=== PATIENT | female | born 1970 | race Caucasian/White ===

== ENCOUNTER 2017-06-04 12:15 | Observation (INO) | payer BC ==
[2017-06-04 12:26] VITALS: BMI 28.7
--- NOTE | 2017-06-04 13:10 | ED PDOC ---
Arrival/HPI - General Chief Complaint: Upper Extremity Problem/Injury Time Seen by Provider: 06/04/17 12:28 Historian: Patient, Family - History of Present Illness Narrative History of Present Illness (Text): 06/04/17 13:07 A 46 year old female, whose past medical history includes migraines, hypertension, hyperlipidemia, and pre-diabetes, presents to the emergency department complaining of pressure-like mid-chest pain since yesterday. Patient reports today experiencing associated left arm pain. Notes also experiencing right-side headache, and tingling sensation which is typical to when patient experiences migraines. Not worse headache of her life. Patient denies any nausea , or any other complaints at this time. PMD: Dr. Murrell Past Medical History - Provider Review Nursing Documentation Reviewed: Yes - Infectious Disease Hx of Infectious Diseases: None - Tetanus Immunization Tetanus Immunization: Unknown - Cardiac Hx Hypertension: Yes - Neurological Hx Migraine: Yes - Endocrine/Metabolic Hx Hypothyroidism: Yes - Hematological/Oncological Hx Blood Transfusions: No - Musculoskeletal/Rheumatological Hx Musculoskeletal Disorders: No - Psychiatric Hx Emotional Abuse: No Hx Physical Abuse: No Hx Substance Use: No - Past Surgical History Past Surgical History: No Previous - Surgical History Hx Section: Yes (x2) - Anesthesia Hx Anesthesia: No Hx Anesthesia Reactions: No Hx Malignant Hyperthermia: No - Suicidal Assessment Feels Threatened In Home Enviroment: No Family/Social History - Physician Review Nursing Documentation Reviewed: Yes Family/Social History: No Known Family HX Smoking Status: Never Smoked Hx Alcohol Use: No Hx Substance Use: No Hx Substance Use Treatment: No Allergies/Home Meds Allergies/Adverse Reactions: Allergies No Known Allergies Allergy (Verified 06/04/17 15:50) Home Medications: Home Meds Medication Instructions Recorded Confirmed acetaZOLAMIDE [Acetazolamide] 500 mg PO QAM 03/02/14 06/04/17 Review of Systems - Physician Review All systems were reviewed & negative as marked: Yes - Review of Systems Cardiovascular: Chest Pain (pressure-like mid-chest pain) Gastrointestinal: absent: Nausea Musculoskeletal: Other (left arm pain associated with chest pain ) Neurological: Headache (right side; not worse of patient's life), Other ( tingling sensation, which patient states typically associated with migraines at baseline) Physical Exam Vital Signs Reviewed: Yes Vital Signs Temp Pulse Resp BP Pulse Ox 06/04/17 14:50 98.1 F 55 L 18 123/63 99 06/04/17 12:15 97.4 F L 59 L 18 110/40 L 95 Temperature: Afebrile Blood Pressure: Normal Pulse: Regular Respiratory Rate: Normal Appearance: Positive for: Well-Appearing Pain Distress: None Mental Status: Positive for: Alert and Oriented X 3 - Systems Exam Head: Present: Atraumatic, Normocephalic Pupils: Present: PERRL Extroacular Muscles: Present: Other (right eye ptosis (states is baseline with migraine headaches)) Conjunctiva: Present: Normal Mouth: Present: Moist Mucous Membranes Neck: Present: Normal Range of Motion Respiratory/Chest: Present: Clear to Auscultation, Good Air Exchange, Other (mid -chest wall tenderness and pain). No: Respiratory Distress, Accessory Muscle Use Cardiovascular: Present: Regular Rate and Rhythm, Normal S1, S2. No: Murmurs Abdomen: No: Tenderness, Distention, Peritoneal Signs Back: Present: Normal Inspection Upper Extremity: Present: Normal Inspection. No: Cyanosis, Edema Lower Extremity: Present: Normal Inspection. No: Edema Neurological: Present: GCS=15, CN II-XII Intact, Speech Normal, Motor Func Grossly Intact, Normal Sensory Function, Normal Cerebellar Funct, Norm Deep Tendon Reflexes, Gait Normal, Memory Normal, Normal 2Pt Descrimination Skin: Present: Warm, Dry, Normal Color. No: Rashes Psychiatric: Present: Alert, Oriented x 3, Normal Insight, Normal Concentration Medical Decision Making ED Course and Treatment: 06/04/17 13:10 Impression: 46 year old female with chest pain, headache. Physical exam shows right eye ptosis (baseline with migraines); mild mid-chest wall tenderness and pain, complete full normal neuro exam; otherwise overall normal examination. Differential Diagnosis included but are not limited to: Chest pain vs. ACS vs. Migraine vs. Tension headache vs. CVA. Plan: -- EKG -- Chest X-ray -- Head CT -- Labs -- Reassess and disposition Progress Notes: Accession No. : [id number] Patient Name / ID : JAY HERNANDEZ / [id number] PROCEDURE: CT scan brain dated 06/04/2017 IMPRESSION: No acute intracranial hemorrhage There is a very small area low-attenuation in the region the anterior limb left internal capsule that may represent volume averaging artifact of deep white matter however the possibility of a tiny chronic lacunar type infarct not completely excluded. 06/04/17 14:04 Patient's labs reviewed. Troponin negative. EKG reviewed and SB. Case discussed with Dr. Murrell who agreed to tele observation. Patient's CT Head reviewed and negative for ICH/CVA. Treated with Aspirin for CP. Patients headache improved. - Lab Interpretations Lab Results: 06/04/17 12:30 06/04/17 12:30 Lab Results 06/04/17 13:50: Blood Type O POSITIVE, Antibody Screen Negative, BBK History Checked No verified bt 06/04/17 12:30: PT 11.9, INR 1.03, APTT 29.7 06/04/17 12:30: Sodium 140, Potassium 4.2, Chloride 108 H, Carbon Dioxide 22, Anion Gap 14, BUN 16, Creatinine 0.8, Est GFR ( Amer) > 60, Est GFR (Non- Af Amer) > 60, Random Glucose 86, Calcium 9.4, Magnesium 2.1, Total Bilirubin < 0.1 L, AST 25, ALT 37, Alkaline Phosphatase 82, Lactate Dehydrogenase 505, Total Creatine Kinase 162, Troponin I < 0.01, Total Protein 7.3, Albumin 4.3, Globulin 3.0, Albumin/Globulin Ratio 1.4, Triglycerides 216 H, Cholesterol 254 H , LDL Cholesterol Direct 181 H, HDL Cholesterol 38 06/04/17 12:30: WBC 6.5, RBC 4.20, Hgb 10.9 L, Hct 34.2 L, MCV 81.4, MCH 26.0, MCHC 31.9, RDW 15.4 H, Plt Count 206, MPV 11.4 H, Gran % 45.4 L, Lymph % (Auto) 45.0 H, [place] % (Auto) 6.7 H, Eos % (Auto) 2.6, Baso % (Auto) 0.3, Gran # 2.93, Lymph # (Auto) 2.9, [place] # (Auto) 0.4, Eos # (Auto) 0.2, Baso # (Auto) 0.02 - RAD Interpretation Radiology Orders: 06/04/17 12:49 CHEST ONE VIEW [RAD] Stat 06/04/17 13:05 HEAD W/O CONTRAST [CT] Stat - EKG Interpretation EKG Interpretation (Text): 06/04/17 16:17 Sinus daniel at [address] elevations, nl intervals Interpreted by ED Physician: Yes Type: 12 lead EKG - Medication Orders Current Medication Orders: Discontinued Medications Aspirin (Aspirin Chewable) 324 mg PO STAT STA Stop: 06/04/17 14:42 - Scribe Statement The provider has reviewed the documentation as recorded by the Ofelia Nolen Provider Scribe Attestation: All medical record entries made by the Ofelia were at my direction and personally dictated by me. I have reviewed the chart and agree that the record accurately reflects my personal performance of the history, physical exam, medical decision making, and the department course for this patient. I have also personally directed, reviewed, and agree with the discharge instructions and disposition. Disposition/Present on Arrival - Present on Arrival Any Indicators Present on Arrival: No History of DVT/PE: No History of Uncontrolled Diabetes: No Urinary Catheter: No History of Decub. Ulcer: No History Surgical Site Infection Following: None - Disposition Have Diagnosis and Disposition been Completed?: Yes Diagnosis: Chest pain, Headache Disposition: HOSPITALIZED Disposition Time: 14:04 Patient Plan: Observation Condition: FAIR
[2017-06-04 13:27] LABS: BASO # 0.02 K/mm3 (0.0-2.0); BASO % 0.3 % (0.0-3.0); EOS # 0.2 (0.0-0.7); EOS % 2.6 % (1.5-5.0); GRAN # 2.93 (1.4-6.5); GRAN % 45.4 % (50.0-68.0); HEMOGLOBIN 10.9 g/dL (12.0-16.0); LYMPH # 2.9 (1.2-3.4); MEAN CELL VOLUME 81.4 fl (80.0-105.0); MEAN CORPUSCULAR HGB CONC 31.9 g/dl (31.0-37.0); MEAN PLATELET VOLUME 11.4 fl (7.0-11.0); MONO # 0.4 (0.1-0.6); MONO % 6.7 % (1.0-6.0); RBC 4.2 10^6/uL (3.5-6.1); RED CELL DISTRIBUTION WIDTH 15.4 % (11.5-14.5); WHITE BLOOD COUNT 6.5 10^3/ul (4.5-11.0)
[2017-06-04 13:35] LABS: INR 1.03 (0.93-1.08); PARTIAL THROMBOPLASTIN TIME 29.7 Seconds (25.1-36.5); PROTHROMBIN TIME 11.9 SECONDS (9.4-12.5)
[2017-06-04 13:38] LABS: ALB/GLOB RATIO 1.4 (1.1-1.8); ALBUMIN 4.3 g/dL (3.0-4.8); ALT/SGPT 37 U/L (7-56); AST/SGOT 25 U/L (14-36); BLOOD UREA NITROGEN 16 mg/dL (7-21); CALCIUM 9.4 mg/dL (8.4-10.5); GFR AFRICAN-AMERICAN > 60; GFR NON-AFRICAN AMERICAN > 60; HDL CHOLESTEROL 38 mg/dL (29-60)
[2017-06-04 13:49] LABS: LDL CHOLESTEROL 181 mg/dL (0-129)
[2017-06-04 13:52] LABS: TROPONIN I < 0.01 ng/mL
--- NOTE | 2017-06-04 14:36 | CT ---
PROCEDURE: CT scan brain dated 06/04/2017 HISTORY: Headache. COMPARISON: None available. TECHNIQUE: Axial computed tomography images were obtained through the head/brain without intravenous contrast. Radiation dose: Total exam DLP = mGy-cm. This CT exam was performed using one or more of the following dose reduction techniques: Automated exposure control, adjustment of the mA and/or kV according to patient size, and/or use of iterative reconstruction technique. FINDINGS: HEMORRHAGE: No acute parenchymal, subarachnoid nor extra-axial hemorrhage. BRAIN: No evidence of large acute infarct. There is a very small area low-attenuation in the region the anterior limb left internal capsule that may represent volume averaging artifact of deep white matter however the possibility of a tiny chronic lacunar type infarct not completely excluded (best seen on axial series 4 image number 25) No obvious parenchymal nor extra-axial mass or collection seen on this noncontrast study. . Ventricular and sulcal size within range normal for this patient's stated age. VENTRICLES: No obstructive hydrocephalus. CALVARIUM: There are no acute calvarial fractures. PARANASAL SINUSES: Unremarkable as visualized. No significant inflammatory changes. MASTOID AIR CELLS: Unremarkable as visualized. No inflammatory changes. OTHER FINDINGS: Orbits and contents unremarkable. IMPRESSION: No acute intracranial hemorrhage There is a very small area low-attenuation in the region the anterior limb left internal capsule that may represent volume averaging artifact of deep white matter however the possibility of a tiny chronic lacunar type infarct not completely excluded.
--- NOTE | 2017-06-04 15:10 | RAD ---
HISTORY: chest pain COMPARISON: Comparison chest 12/01/14 FINDINGS: LUNGS: Poor inspiration with low lung volumes. No acute consolidation PLEURA: No significant pleural effusion identified, no pneumothorax apparent. CARDIOVASCULAR: Normal. OSSEOUS STRUCTURES: No significant abnormalities. VISUALIZED UPPER ABDOMEN: Normal. OTHER FINDINGS: None. IMPRESSION: Poor inspiration with low lung volumes. No acute consolidation
[2017-06-04] MEDS ORDERED: Apap-Butalbital-Caffeine 325-50-40mg Tab PO PRN (16:58)
[2017-06-04] MEDS ORDERED: Pneumococcal 23-Valent Vaccine IM ONE (17:30)
--- NOTE | 2017-06-04 22:13 | CARD ---
APPROVED REPORT EKG Measurement Heart [id number] OR [id number] <Conclusion> Sinus bradycardia Otherwise normal ECG
--- NOTE | 2017-06-04 22:55 | HP ---
HISTORY OF PRESENT ILLNESS: I was called to the ER to evaluate Kayla. She is having a problem today, she is having pressure like mid chest pain since yesterday, also left arm pain, also headache, could be a migraine also. We are not sure what is going on. She is a 46-year-old female with a history of migraines, hypertension, high cholesterol, pre-diabetic with left midsternal chest pain and migraine. PAST MEDICAL HISTORY: She has hypertension, migraines, hypothyroidism. PAST SURGICAL HISTORY: She had x2. FAMILY HISTORY: No family history. SOCIAL HISTORY: Never smoked. No alcohol. No drugs. ALLERGIES: NO KNOWN DRUG ALLERGIES. MEDICATIONS: She takes acetazolamide 500 mg in the morning. REVIEW OF SYSTEMS: She has vision changes. Bright lights bother her. Loud noises bother her ears.. No sore throat. There is chest pain, pressure like in midsternum into the left arm. No nausea, vomiting, constipation, diarrhea. No shortness of breath or cough. Left arm pain is associated with chest pain. There is a headache. On the right side, the face looks off like a migraine, also tingling sensation. Extremities, she can move all 4 extremities, no edema. Skin for the most part is intact. PHYSICAL EXAMINATION: VITAL SIGNS: She has a 97.4 temperature, 59 pulse, 18 respiratory rate, 110/40 blood pressure, 95% O2 sat on room air. HEENT: Head is atraumatic, normocephalic. The eyes are off when looking at her, the right eye is closed. Left eye is open. She is fair, in distress. She has a right eye ptosis. Extraocular muscles are intact. Throat is moist. LUNGS: Clear to auscultation. Good exchange. No wheezes, rhonchi or rales. NECK: Supple. Thyroid midline. HEART: Regular rate. Normal S1, S2. ABDOMEN: Soft, nontender. Positive bowel sounds. No guarding, no rebound, no CVA tenderness. EXTREMITIES: No edema. She moves all four extremities okay. NEUROLOGIC: GCS is 15. Cranial nerves II through XII grossly intact. Speech is normal. No true neurological signs. Alert and oriented x3. SKIN: For the most part is intact. No palpable lymphadenopathy. LABORATORY DATA: She had tests done. She has a 1.03 INR. She has a 140 sodium, potassium 4.2. BUN 60, creatinine 0.8. GFR is greater than 60, sugar is 86, calcium is 9.4. Total bili is pending. Magnesium is 2.1. AST is 25, ALT is 27, alk phos is 82, lactate dehydrogenase is 505. Troponin I is pending. Total protein is 7.3, albumin is 4.3, globulin is 3. Triglycerides is 216, cholesterol 254. She has a 6.5 white count, 10.9 hemoglobin, 34.2 hematocrit with a 206 platelets. She has chest x-ray ordered, head CT ordered and EKG ordered that are pending. ASSESSMENT AND PLAN: She has a consult for Dameon Ziegler MD, rotor coil taper and Evan Mix MD, Neurology and will see how we can do to help with her chest pain and her possible migraine and she will be in observation for overnight to check her troponins and this is a history and physical on [facility] for chest pain and possible migraine headache. Britton Murrell DO
[2017-06-05 06:28] VITALS: O2SAT 98
[2017-06-05 07:12] LABS: HEMOGLOBIN 11.7 g/dL (12.0-16.0); MEAN CELL VOLUME 80.5 fl (80.0-105.0); MEAN CORPUSCULAR HEMOGLOBIN 26.8 pg (25.0-35.0); MEAN CORPUSCULAR HGB CONC 33.2 g/dl (31.0-37.0); RBC 4.37 10^6/uL (3.5-6.1); RED CELL DISTRIBUTION WIDTH 15.5 % (11.5-14.5); WHITE BLOOD COUNT 5.1 10^3/ul (4.5-11.0)
[2017-06-05 07:52] LABS: ALB/GLOB RATIO 1.3 (1.1-1.8); ALBUMIN 4.3 g/dL (3.0-4.8); ALT/SGPT 33 U/L (7-56); AST/SGOT 37 U/L (14-36); BLOOD UREA NITROGEN 11 mg/dL (7-21); CALCIUM 9.3 mg/dL (8.4-10.5); GFR AFRICAN-AMERICAN > 60; GFR NON-AFRICAN AMERICAN > 60
--- NOTE | 2017-06-05 08:19 | CON ---
DATE: 06/04/2017 CHIEF COMPLAINT: Headache and chest pain. HISTORY OF PRESENTING ILLNESS: This is a 46-year-old woman with past medical history of pseudotumor cerebri, on Diamox 500 mg p.o. daily; history of migraines, was on Topamax in the past, but now on nortriptyline 50 mg p.o. at bedtime; history of hypertension and also having chest pressure symptoms in the mid chest since yesterday and was having stresses and left arm paresthesia and pain. Currently, she has some mild right-sided headache and tingling sensation, which is typical from her usual migraines, but no worsening of her usual migraines since she is on nortriptyline and Diamox. Currently, no focal weakness of the extremities. No changes in sense of vision, taste or smell. The CT of the head showed no acute intracranial abnormality, just chronic ischemic changes. No focal deficits were seen on the examination. PAST MEDICAL HISTORY: Hypothyroidism, migraines, hypertension, history of pseudotumor. REVIEW OF SYSTEMS: Fourteen-point review of systems negative except per the HPI. FAMILY HISTORY: Noncontributory. SOCIAL HISTORY: No illicit drug use, smoking or EtOH abuse. ALLERGIES: NO KNOWN DRUG ALLERGIES. PHYSICAL EXAMINATION: VITAL SIGNS: Temperature 98.1, pulse rate of 55, blood pressure 123/60, respiratory rate of 18, oxygen saturation 99% by room air. GENERAL: The patient is sitting up in bed, in no acute distress. HEENT: Atraumatic, normocephalic. PERRLA. Extraocular muscles intact. NECK: Supple. No JVD. No adenopathy noted. LUNGS: Clear to auscultation. No adventitious sounds. HEART: S1 and S2. Normal rate and rhythm. No murmurs, rubs or gallops. ABDOMEN: Soft, nontender and nondistended. Bowel sounds are present. EXTREMITIES: No clubbing. No cyanosis. Peripheral pulses are 2+ felt bilaterally. NEUROLOGIC: The patient is alert and oriented to person, place, month and year. Speech is fluent without any errors. Cranial nerves II through XII intact. Motor exam: Moves all extremities equally. No pronator drift seen. Sensory exam: Light touch, pinprick, proprioception and vibration are intact. DTRs are 2+ throughout. Coordination: [id number] intact. No dysmetria noted. Gait is deferred for now. LABORATORY DATA: Sodium is 140/potassium 4.2, chloride of 108, carbon dioxide 22, BUN of 16, creatinine 0.8, random glucose 86, A1c is 5.9. Elevated triglycerides, cholesterol and LDL. ASSESSMENT AND PLAN: This is a 46-year-old woman with history of pseudotumor cerebri, on Diamox 500 mg p.o. every a.m.; Nortriptyline 50 mg p.o. daily for migraines with Fioricet p.r.n.; history of hypothyroidism; history of hypertension; who came in for mid chest pain and discomfort with some left arm pain and I was consulted for history of migraine headaches, history of mild right-sided headache with tingling sensation, which is typical for her migraines. Currently, her migraine is aggravated by stress, but no focal weakness on the extremities. The CAT scan of the head showed no acute intracranial abnormality. She had MRI of the brain and MRA of the head in 11/2014, which showed no acute intracranial abnormalities. At this time, I would recommend, 1. Continue with the Diamox 500 mg p.o. every a.m. for pseudotumor cerebri and worsening of headaches. 2. Nortriptyline 50 mg p.o. at bedtime for headache prevention. 3. Fioricet with acute onset of headache. 4. Continue with chest pain workup and continue with current present medical management. She will follow up with me as an outpatient . Evan Mix MD
--- NOTE | 2017-06-05 11:28 | DS ---
HISTORY OF PRESENT ILLNESS: She is doing better this morning. The face looks a lot better. The headache is much less. She is on Fioricet and Pamelor. She is seen by the neurologist. The motorcycle sales associate has not seen yet. PHYSICAL EXAMINATION: VITAL SIGNS: She has a 97.9 temp, 68 pulse, 99/57 blood pressure, 18 respiratory rate, 98% O2 sat on room air. HEENT: Head is atraumatic, normocephalic. The face is much better. It was very contorted yesterday, not it is back to normal. HEART: Regular rate. LUNGS: Clear to auscultation. ABDOMEN: Soft. EXTREMITIES: No edema. LABORATORY DATA: She had 144 sodium, potassium 4, BUN is 11, creatinine 0.8, GFR is greater than 60, sugar is 94, calcium is 9.3, total bili is 0.2. AST is 37, ALT is 33, alk phos is 73. All 5 troponins are less than 0.01. Total protein 7.6, albumin is 4.3. INR is 1.03. 5.1 white count, 11.7 hemoglobin, 35.2 hematocrit with 190 platelets. ASSESSMENT AND PLAN: My plan is to discharge her home today after Dr. Ziegler sees her. Maybe schedule an outpatient stress test. We will continue with her medications, which are Fioricet and Pamelor. She will follow up on the outpatient also with neurologist. I will see her in the office in a week. Britton Murrell DO
[2017-06-05 12:01] VITALS: BP 108/70; PULSE 70; RESP 16; TEMP 97.8
--- NOTE | 2017-06-05 13:14 | CON ---
DATE: 06/05/2017 CARDIOLOGY CONSULTATION HISTORY OF PRESENT ILLNESS: The patient is a 46-year-old woman who presents with right-sided chest discomfort with radiation to the right upper extremity. The patient's past medical history is notable for history of systemic hypertension. She has intermittent focal right-sided chest discomfort both at rest and intermittently when she exerts herself. Her symptoms associated with an occasional paresthesias of the right upper extremity. The patient also suffers from history of migraines and has a history of pseudotumor cerebri, which she is on Diamox. Besides that, there is no other cardiac history noted. No history of diabetes mellitus. No family history of CAD. No previous cardiac history. SOCIAL HISTORY: The patient does not smoke. No alcohol use or drug abuse is noted. REVIEW OF SYSTEMS: A 14-point review of systems revealed no cardiac symptomatology. PHYSICAL EXAMINATION VITAL SIGNS: Blood pressure is 99/57, heart rate is in the 60s. NECK: Negative JVD. LUNGS: Without rales. HEART: Reveals S1, S2. EXTREMITIES: Without edema. LABORATORY DATA: Hemoglobin is 11.7. Chemistries: Troponins are negative x2. EKG is within normal limits. IMPRESSION: 1. Atypical chest pain. 2. No evidence for acute coronary syndrome. 3. History of systemic hypertension. 4. History of migraines. 5. Occasional dyspnea, but none during this admission. PLAN: Given these findings, the patient has a low probability for CAD. There is no evidence for acute coronary syndrome. However, given her recurrent symptoms, we will arrange for a stress test which can be done as an outpatient. From a cardiac perspective, the patient can be discharged today. Dameon Ziegler MD
--- NOTE | 2017-06-05 14:26 | CARD ---
APPROVED REPORT EKG Measurement Heart [id number] NM 142P44 [id number] <Conclusion> Normal sinus rhythm Normal ECG
--- NOTE | 2017-06-05 14:33 | CARD ---
APPROVED REPORT EKG Measurement Heart [id number] MA 156P38 [id number] <Conclusion> Normal sinus rhythm Normal ECG
== END 2017-06-05 14:14 | disposition home or self-care (01) ==
LOC: ED 12:15 → ERH 14:04 → 2RSO 15:53
PROVIDERS: ADMIT Family Medicine; ATTEND Family Medicine
DX: R07.89 Other chest pain (principal); R07.2 Precordial pain; G93.2 Benign intracranial hypertension; G43.909 Migraine, unspecified, not intractable, without status migrainosus; I10 Essential (primary) hypertension; E78.00 Pure hypercholesterolemia, unspecified; R73.03 Prediabetes; E03.9 Hypothyroidism, unspecified; R06.00 Dyspnea, unspecified
CPT/HCPCS: 36415; 70450; 71045; 80053; 80061; 82550; 82948; 83036; 83615; 83735; 84484; 85025; 85027; 85610; 85730; 86850; 86900; 93005; 99285; G0378

== ENCOUNTER 2018-05-18 11:04 | Observation (INO) | payer BC ==
[2018-05-18] MEDS ORDERED: Sodium Chloride 0.9% 1,000 ML IV STA (13:17)
--- NOTE | 2018-05-18 13:21 | ED PDOC ---
Arrival/HPI - General Historian: Patient - History of Present Illness Narrative History of Present Illness (Text): 05/18/18 13:17 47 yo female w/PMHx of HTN, NIDDM, migraine, come in for evaluation of gradual onset of SOB, associated with chest tightness/pain, B/L hands and feet tingling sensation, fatigue gradually developed for past 2 days. Pt sts, " today woke up and still had chest pressure, decide check myself". Pt also reports, " under a lot of stress for past week, my father is very sick right now", appears depressed, in tears. Pt denies recent illness, fever, chills, denies severe headache, visual changes, focal deficits, neck pain, palpitation, diaphoresis, V/D, UTI sx. Past Medical History - Provider Review Nursing Documentation Reviewed: Yes - Travel History Have you recently traveled outside [place] w/in the past 3 mons?: No - Infectious Disease Hx of Infectious Diseases: None - Tetanus Immunization Tetanus Immunization: Unknown - Cardiac Hx Cardiac Disorders: Yes Hx Hypertension: Yes - Pulmonary Hx Respiratory Disorders: No - Neurological Hx Neurological Disorder: Yes Hx Migraine: Yes - HEENT Hx HEENT Disorder: No - Renal Hx Renal Disorder: No - Endocrine/Metabolic Hx Endocrine Disorders: Yes (PRE DIABETES) Hx Hypothyroidism: Yes - Hematological/Oncological Hx Blood Disorders: No - Integumentary Hx Dermatological Disorder: No - Musculoskeletal/Rheumatological Hx Musculoskeletal Disorders: No Hx Falls: No - Gastrointestinal Hx Gastrointestinal Disorders: Yes (APPENDECTOMY) - Genitourinary/Gynecological Hx Genitourinary Disorders: Yes (2 C/S,OVARIAN CYST R REMOVED) - Psychiatric Hx Psychophysiologic Disorder: No Hx Emotional Abuse: No Hx Physical Abuse: No Hx Substance Use: No - Past Surgical History Past Surgical History: No Previous - Surgical History Hx Appendectomy: Yes - Anesthesia Hx Anesthesia: No Hx Anesthesia Reactions: No Hx Malignant Hyperthermia: No - Suicidal Assessment Feels Threatened In Home Enviroment: No Family/Social History - Physician Review Nursing Documentation Reviewed: Yes Family/Social History: No Known Family HX Smoking Status: Never Smoked Hx Alcohol Use: No Hx Substance Use: No Hx Substance Use Treatment: No Allergies/Home Meds Allergies/Adverse Reactions: Allergies No Known Allergies Allergy (Verified 06/04/17 15:50) Home Medications: Home Meds Medication Instructions Recorded Confirmed acetaZOLAMIDE [Acetazolamide] 500 mg PO QAM 03/02/14 06/04/17 Review of Systems - Review of Systems Constitutional: Fatigue Eyes: Normal. absent: Vision Changes ENT: absent: Epistaxis Respiratory: absent: SOB, Cough, Sputum, Wheezing Cardiovascular: Chest Pain. absent: Palpitations, Orthopnea, Syncope Gastrointestinal: Abdominal Pain. absent: Diarrhea, Vomiting Genitourinary Female: absent: Dysuria, Frequency Musculoskeletal: Normal Skin: absent: Rash Neurological: Headache. absent: Focal Weakness, Speech Changes, Facial Droop, Disequilibrium, Seizure Endocrine: Normal Hemo/Lymphatic: Normal Psychiatric: Normal Physical Exam Temperature: Afebrile Blood Pressure: Normal Pulse: Regular Respiratory Rate: Normal Appearance: Positive for: Well-Appearing, Non-Toxic, Comfortable Pain Distress: None Mental Status: Positive for: Alert and Oriented X 3 - Systems Exam Head: Present: Atraumatic, Normocephalic Pupils: Present: PERRL Extroacular Muscles: Present: EOMI Conjunctiva: Present: Normal Mouth: Present: Moist Mucous Membranes, Normal Lips. No: Drooling Pharnyx: No: ERYTHEMA Neck: Present: Trachea Midline. No: JVD, Bruit Respiratory/Chest: Present: Clear to Auscultation, Good Air Exchange. No: Respiratory Distress, Accessory Muscle Use Cardiovascular: Present: Regular Rate and Rhythm, Normal S1, S2. No: Murmurs Abdomen: Present: Tenderness (mild epigastric). No: Distention, Peritoneal Signs, Rebound, Guarding Back: No: CVA Tenderness Upper Extremity: Present: Normal Inspection, Normal ROM. No: Deformity Lower Extremity: Present: Normal Inspection, NORMAL PULSES, Normal ROM. No: Edema, CALF TENDERNESS, Swelling, Deformity Neurological: Present: GCS=15, CN II-XII Intact, Speech Normal, Motor Func Grossly Intact, Normal Sensory Function, Normal Cerebellar Funct, Norm Deep Tendon Reflexes Skin: Present: Warm, Dry, Normal Color. No: Rashes Psychiatric: Present: Alert, Oriented x 3 Medical Decision Making ED Course and Treatment: 05/18/18 Pt was OBS in ED for 3 hrs and remained unchanged. Blood work, UA, imaging review and appears without acute abnormalities case was discussed with pt's PMD , given pt's PMHx, risk factors, OBS admission to tele with consult of Card, neuro was recommend. - Lab Interpretations I have reviewed the lab results: Yes - RAD Interpretation Radiology Orders: 05/18/18 13:13 HEAD W/O CONTRAST [CT] Stat CHEST PORTABLE [RAD] Stat 05/18/18 13:14 HEAD W/O CONTRAST [CT] Stat 05/18/18 13:16 CHEST TWO VIEWS (PA/LAT) [RAD] Stat Date of service: 05/18/2018 PROCEDURE: CT HEAD WITHOUT CONTRAST. HISTORY: headache COMPARISON: 06/04/2017 TECHNIQUE: Axial computed tomography images were obtained through the head/brain without intravenous contrast. Radiation dose: Total exam DLP = 1019.2 mGy-cm. This CT exam was performed using one or more of the following dose reduction techniques: Automated exposure control, adjustment of the mA and/or kV according to patient size, and/or use of iterative reconstruction technique. FINDINGS: HEMORRHAGE: No intracranial hemorrhage. BRAIN: No mass effect or edema. No atrophy or chronic microvascular ischemic changes. VENTRICLES: Unremarkable. No hydrocephalus. CALVARIUM: Unremarkable. PARANASAL SINUSES: Unremarkable as visualized. No significant inflammatory changes. MASTOID AIR CELLS: Unremarkable as visualized. No inflammatory changes. OTHER FINDINGS: None. IMPRESSION: No intracranial mass, hemorrhage or evidence of acute infarct. Unremarkable. - EKG Interpretation EKG Interpretation (Text): 05/18/18 11:28 SR@65/min, NAD, no acute t wave or ST-T changes Interpreted by ED Physician: Yes Comparison: Similar to previous EKG - Medication Orders Current Medication Orders: Discontinued Medications Ondansetron HCl (Zofran Inj) 4 mg IVP STAT STA Stop: 05/18/18 13:15 Disposition/Present on Arrival - Present on Arrival Any Indicators Present on Arrival: No History of DVT/PE: No History of Uncontrolled Diabetes: No Urinary Catheter: No History Surgical Site Infection Following: None - Disposition Have Diagnosis and Disposition been Completed?: Yes Diagnosis: Chest pain, Paresthesia Disposition: HOSPITALIZED Disposition Time: 14:39 Patient Plan: Admission, Observation Patient Problems: Current Active Problems Problem Status Onset Paresthesia Acute Chest pain Acute Condition: STABLE
[2018-05-18 13:50] LABS: BASO # 0.03 K/mm3 (0.0-2.0); BASO % 0.4 % (0.0-3.0); EOS # 0.1 (0.0-0.7); EOS % 1.3 % (1.5-5.0); HEMOGLOBIN 12.5 g/dL (12.0-16.0); LYMPH # 2.6 (1.2-3.4); LYMPH % 34.6 % (22.0-35.0); MEAN CELL VOLUME 86.6 fl (80.0-105.0); MEAN CORPUSCULAR HEMOGLOBIN 28.3 pg (25.0-35.0); MEAN CORPUSCULAR HGB CONC 32.7 g/dl (31.0-37.0); MEAN PLATELET VOLUME 11.4 fl (7.0-11.0); MONO # 0.5 (0.1-0.6); MONO % 6.5 % (1.0-6.0); RBC 4.41 10^6/uL (3.5-6.1); RED CELL DISTRIBUTION WIDTH 14.2 % (11.5-14.5); WHITE BLOOD COUNT 7.6 10^3/uL (4.5-11.0)
[2018-05-18 13:55] LABS: PH,URINE 7.5 (4.7-8.0); URINE APPEARANCE SL CLOUDY (CLEAR); URINE BILIRUBIN NEGATIVE (NEGATIVE); URINE BLOOD NEGATIVE (NEGATIVE); URINE COLOR YELLOW (YELLOW); URINE GLUCOSE (UA) NEGATIVE (NEGATIVE); URINE LEUKOCYTE ESTERASE NEGATIVE Leu/uL (NEGATIVE); URINE PROTEIN NEGATIVE mg/dL (<30 mg/dL); URINE UROBILINOGEN 0.2 E.U./dL (<1 E.U./dL)
[2018-05-18 13:57] LABS: INR 1.03; PARTIAL THROMBOPLASTIN TIME 33.5 Seconds (26.9-38.3); PROTHROMBIN TIME 11.6 SECONDS (9.4-12.5)
[2018-05-18 14:10] LABS: ALB/GLOB RATIO 1.3 (1.1-1.8); ALBUMIN 4.3 g/dL (3.0-4.8); ALT/SGPT 25 U/L (7-56); AST/SGOT 23 U/L (14-36); BLOOD UREA NITROGEN 14 mg/dL (7-21); CALCIUM 9.8 mg/dL (8.4-10.5); GFR NON-AFRICAN AMERICAN > 60
--- NOTE | 2018-05-18 14:17 | CT ---
Date of service: 05/18/2018 PROCEDURE: CT HEAD WITHOUT CONTRAST. HISTORY: headache COMPARISON: 06/04/2017 TECHNIQUE: Axial computed tomography images were obtained through the head/brain without intravenous contrast. Radiation dose: Total exam DLP = 1019.2 mGy-cm. This CT exam was performed using one or more of the following dose reduction techniques: Automated exposure control, adjustment of the mA and/or kV according to patient size, and/or use of iterative reconstruction technique. FINDINGS: HEMORRHAGE: No intracranial hemorrhage. BRAIN: No mass effect or edema. No atrophy or chronic microvascular ischemic changes. VENTRICLES: Unremarkable. No hydrocephalus. CALVARIUM: Unremarkable. PARANASAL SINUSES: Unremarkable as visualized. No significant inflammatory changes. MASTOID AIR CELLS: Unremarkable as visualized. No inflammatory changes. OTHER FINDINGS: None. IMPRESSION: No intracranial mass, hemorrhage or evidence of acute infarct. Unremarkable.
[2018-05-18 14:21] LABS: TROPONIN I < 0.01 ng/mL
[2018-05-18 15:17] LABS: HCG,QUALITATIVE URINE NEGATIVE (NEGATIVE)
[2018-05-18] MEDS ORDERED: Sodium Chloride 0.45% 1,000 ML IV SCH (17:15)
--- NOTE | 2018-05-18 18:01 | CARD ---
APPROVED REPORT Date of service: 05/18/2018 EKG Measurement Heart [id number] DC [id number] <Conclusion> Normal sinus rhythm Normal ECG
--- NOTE | 2018-05-18 19:27 | US ---
HISTORY: Leg pain and swelling. Evaluate for DVT PHYSICIAN(S): Dameon Munguia MD. TECHNIQUE: Duplex sonography and color-flow Doppler with graded compression were used to evaluate the deep venous systems of both lower extremities. FINDINGS: The visualized deep venous systems of both lower extremities are sonographically normal and compressible. Normal wave forms and augmentation are seen. There is no sonographic evidence for deep venous thrombosis in the visualized segments of both lower extremities. IMPRESSION: No sonographic evidence for deep venous thrombosis in the visualized segments of both lower extremities.
[2018-05-18] MEDS ORDERED: Influenza Vaccine 60 mcg/0.5 mL SYR (4YR UP) IM ONE (19:37)
[2018-05-18] MEDS ORDERED: Pneumococcal 23-Valent Vaccine IM ONE (19:37)
--- NOTE | 2018-05-19 | HP ---
DATE OF EXAM: 05/18/2018 HISTORY OF PRESENT ILLNESS: I was called down to the ER by the emergency room doctor to admit Kayla on observation for 24 hours. She is a 47-year-old female with multiple complaints, chest tightness, pain, bilateral hands and feet tingling sensations, discoloration of her toes and fingers to blue developed over the past 2 days. She woke up and had chest pressure, she decided to come to the emergency room. She seemed in a lot of stress with her father being very sick right now who is 91 years old and in a subacute rehab, he was in the hospital. She is depressed and in tears. The patient is not doing well. She is just lying in bed, cannot cope at this time. She has a little bit of hypertension, migraines. She is prediabetic. She is hypothyroid. She is very emotional. PAST MEDICAL HISTORY: She has had appendectomy in the past. Two Cesarian sections. Ovarian cyst removed in the right side. FAMILY HISTORY: Unknown family history, but the father does have heart disease. SOCIAL HISTORY: Never smoked. No drinking. No drugs. ALLERGIES: NO KNOWN DRUG ALLERGIES. MEDICATIONS: She takes acetazolamide. REVIEW OF SYSTEMS: No acute hearing changes. There are vision changes, the right eye especially. No epistaxis. No shortness of breath, cough with sputum or wheezing. There is chest pain. No palpitations. There is abdominal pain, she is pointing to the lower abdomen. We will get a CT scan of the abdomen and the pelvis. No problems urinating. Lots of muscle and joint pains everywhere, she tells me. No skin rashes that she knows about. She has got headaches. No focal weakness. She is depressed. PHYSICAL EXAMINATION GENERAL: We will give her some fluids. She is alert, a little stressed, well-appearing in bed, but stressed out, looks very anxious. Alert and oriented x3. VITAL SIGNS: She has a 97.6 temperature, 66 pulse, 99/69 blood pressure, 18 respiratory rate, and 98% O2 sat on room air. HEENT: Head is atraumatic, normocephalic. Extraocular muscles are intact. Pupils equally reactive to light. There is some ptosis of the eyelid on the right. Moist membranes. No erythema. NECK: Supple. No JVD. Thyroid present. No palpable lymphadenopathy cervically. LUNGS: Decreased breath sounds but clear to auscultation bilaterally. No wheezes, no rhonchi, no rales. HEART: Regular rate. Normal S1, S2. ABDOMEN: There is midepigastric tenderness, mild and lower mid epigastric tenderness, mild in the lower abdomen. No rebound or guarding, just this diffusely discomforting. No CVA tenderness. Decreased bowel sounds are present. EXTREMITIES: No edema. She told me the toes were blue, they are not blue now. NEUROLOGIC: GCS is 15. Cranial nerves II through XII grossly intact. Sensation intact. Alert and oriented x3 but stressed, maybe depressed. SKIN: Warm and dry. LABORATORY DATA: She had a CT scan of her head, which was okay. No intracranial mass, hemorrhage or evidence of infarction. Urine was clean, she is not . A 140 sodium, potassium 4.4, BUN 40, creatinine 0.7, GFR is greater than 60, sugar is 83, calcium is 9.8, total bili is 0.2, AST is 23, ALT is 25, alkaline phosphatase 90. Lactate hydrogenase is 593. Troponin I is less than 0.01, total protein is 7.6, albumin is 4.3. INR is 1.03. White count 7.6, hemoglobin 12.5, hematocrit 38.2, platelets of 230. IMPRESSION AND PLAN: She will have a CT scan of the abdomen and pelvis, venous Dopplers and the 2 O Dopplers of lower extremities. She will have consults with Neurology for sensations and Cardiology for her chest pain. We will check her troponins. Psychiatry for depression and anxiety. She will be admitted to telemetry observation. Britton Murrell DO
[2018-05-19] MEDS ORDERED: Barium Sulfate Susp 2.1% w/v, 2.0% w/w 450 mL Bottle PO ONE (00:08)
[2018-05-19 06:34] VITALS: O2SAT 96
[2018-05-19 07:11] LABS: HEMOGLOBIN 12.1 g/dL (12.0-16.0); MEAN CELL VOLUME 86.1 fl (80.0-105.0); MEAN CORPUSCULAR HGB CONC 32.5 g/dl (31.0-37.0); MEAN PLATELET VOLUME 11.2 fl (7.0-11.0); RBC 4.32 10^6/uL (3.5-6.1); RED CELL DISTRIBUTION WIDTH 14.3 % (11.5-14.5); WHITE BLOOD COUNT 6.2 10^3/uL (4.5-11.0)
[2018-05-19 07:59] LABS: ALB/GLOB RATIO 1.2 (1.1-1.8); ALBUMIN 4.1 g/dL (3.0-4.8); ALT/SGPT 18 U/L (7-56); AST/SGOT 22 U/L (14-36); BLOOD UREA NITROGEN 10 mg/dL (7-21); CALCIUM 9.1 mg/dL (8.4-10.5); GFR NON-AFRICAN AMERICAN > 60
--- NOTE | 2018-05-19 09:45 | RAD ---
Date of service: 05/18/2018 HISTORY: SOB COMPARISON: 06/04/2017 TECHNIQUE: Chest PA and lateral views FINDINGS: LUNGS: No active pulmonary disease. PLEURA: No significant pleural effusion identified. No pneumothorax apparent. CARDIOVASCULAR: No aortic atherosclerotic calcification present. Normal cardiac size. No pulmonary vascular congestion. OSSEOUS STRUCTURES: No significant abnormalities. VISUALIZED UPPER ABDOMEN: Normal. OTHER FINDINGS: None. IMPRESSION: No active disease.
[2018-05-19] MEDS ORDERED: LUBIPROSTONE 8 MCG PO SCH (10:00)
[2018-05-19] MEDS ORDERED: acetaZOLAMIDE 500 mg SR Cap PO SCH (10:00)
[2018-05-19] MEDS ORDERED: Magnesium Oxide 400 mg Tab UD PO SCH (10:00)
[2018-05-19] MEDS ORDERED: Bisacodyl 5mg EC Tab PO SCH (10:00)
--- NOTE | 2018-05-19 10:03 | CT ---
Date of service: 05/19/2018 PROCEDURE: CT Abdomen and Pelvis without intravenous contrast HISTORY: abd pain COMPARISON: 05/28/2013 TECHNIQUE: Without contrast.. Contrast dose: Radiation dose: Total exam DLP = 473.94 mGy-cm. This CT exam was performed using one or more of the following dose reduction techniques: Automated exposure control, adjustment of the mA and/or kV according to patient size, and/or use of iterative reconstruction technique. FINDINGS: LOWER THORAX: Unremarkable. LIVER: Unremarkable. No gross lesion or ductal dilatation. GALLBLADDER AND BILE DUCTS: Unremarkable. PANCREAS: Unremarkable. No gross lesion or ductal dilatation. SPLEEN: Unremarkable. ADRENALS: Unremarkable. No mass. KIDNEYS AND URETERS: Unremarkable. No hydronephrosis. No solid mass. Nonobstructing stones in the left kidney. VASCULATURE: Unremarkable. No aortic aneurysm. No aortic atherosclerotic calcification or mural plaque present. BOWEL: Unremarkable. No obstruction. No gross mural thickening. APPENDIX: Unremarkable. Normal appendix. PERITONEUM: Unremarkable. No free fluid. No free air. LYMPH NODES: Unremarkable. No enlarged lymph nodes. BLADDER: Unremarkable. REPRODUCTIVE: Unremarkable. BONES: No acute fracture. OTHER FINDINGS: The report concurs with the preliminary [facility] report IMPRESSION: Unremarkable non contrast enhanced CT of the abdomen and pelvis.
[2018-05-19 11:54] VITALS: BP 112/71; RESP 20; TEMP 98
--- NOTE | 2018-05-19 13:57 | US ---
PROCEDURE: Lower extremity ANNA MARIE exam HISTORY: Peripheral vascular disease with pain and claudication. Diabetes PHYSICIAN(S): Dameon Munguia MD. FINDINGS: The resting ANNA MARIE's are normal: right, 1.17and left, 1.10. The brachial systolic pressures are symmetric. The high thigh pressures and waveforms are relatively normal. The calf PVR waveforms augment normally. No significant gradients are noted across the thighs. The ankle and metatarsal waveforms are relatively normal and symmetric. No significant pressure gradients are noted across the lower legs. IMPRESSION: 1. Normal ANNA MARIE and PVR examination at rest.
--- NOTE | 2018-05-19 15:50 | CON ---
DATE: 05/19/2018 HISTORY OF PRESENT ILLNESS: A 47-year-old female with past medical history of hypertension, migraine, diabetes, presented here with tightness of the chest and tingling sensation of both hands and feet for the last 2 days. The patient was under lot of stress and appeared to be depressed, came to the hospital. CAT scan of the head was done, which was reported negative. PHYSICAL EXAMINATION HEENT: Normocephalic, atraumatic. NECK: Supple. NEUROLOGIC: Alert , awake, and oriented x3. No aphasia. Cranial nerve II through XII were tested. Pupils equal and reactive to light. EOM intact. Visual watts full. No facial asymmetry. Tongue midline. MOTOR EXAMINATION: Moves all extremities equally. Tone normal. Deep tendon reflexes 1+. Both plantars are downgoing. Sensory appears intact. Cerebellar gait deferred. IMPRESSION AND PLAN: A 47-year-old female with multiple complaints of chest tightness and feeling tingling sensation in both hands and feet for the past 2 days. CAT scan of the head was done, which was reported negative. Workup in progress. Continue present management. We will followup. Waldo Mix MD
[2018-05-19 16:41] VITALS: PULSE 84
--- NOTE | 2018-05-19 17:01 | CON ---
DATE OF CONSULTATION: 05/19/2018 CARDIOLOGY CONSULTATION HISTORY: The patient is a 47-year-old woman with a history of pseudotumor cerebri, who complains of intermittent chest discomfort. She had similar symptoms a year ago, and she underwent a stress Cardiolite, which was normal. Currently, her troponins are all negative, and her cardiac risk factors are few. Her symptoms seem to be typical, and she is chest-pain free now. SOCIAL HISTORY: Denies smoking. REVIEW OF SYSTEMS: All negative for cardiac symptomatology. PHYSICAL EXAMINATION: VITAL SIGNS: Stable. NECK: Negative JVD. LUNGS: Without rales. CARDIAC: Heart rate S1, S2. EXTREMITIES: Without edema. EKG is within normal limits. Troponins are all negative. IMPRESSION: 1. Atypical chest pain. 2. Recurrent headaches. 3. Pseudotumor cerebri. PLAN: Given these findings, it is unlikely the patient's chest pain represents acute coronary syndrome. There is no evidence of it. No further cardiac workup is necessary. Dameon Ziegler MD
--- NOTE | 2018-05-19 18:39 | CON ---
DATE OF CONSULTATION: 05/19/2018 HISTORY OF PRESENT ILLNESS: In short, the patient is a 47-year-old female with not known previous psychiatric history. The patient has multiple medical issues including hypertension, diabetes, and migraine. The patient was admitted on the medical site for pressure-like feeling in her chest. Psych consult was called for evaluation of depression and anxiety. The patient was seen and examined today. The patient presented to be alert and oriented, pleasant, cooperative. The patient denied feeling anxious, but worried about her old father. The patient denied feeling depressed or hopeless or helpless. The patient denied any psychotic symptoms. The patient denied history of being admitted to the psychiatric inpatient unit, never been evaluated by psychiatrist, and never been on psychotropic medications. Going back to the patient's previous assessment, the patient has a history of complicated migraine. The patient was on Diamox 500 mg daily, Topamax 100 mg at the bedtime, and Fioricet. The patient was seen by , neurologist in the past. Currently, the patient is under the care of Dr. Evan Mix. PHYSICAL EXAMINATION: VITAL SIGNS: The patient's vital signs are stable. Temperature 98, pulse is 65, blood pressure 112/71, respirations 20, and oxygen saturation is 96. MEDICATIONS: Reviewed. The patient is on Diamox, Dulcolax, magnesium oxide, Glucophage, Amitiza, sodium chloride, and Topamax. LABORATORY DATA: Labs reviewed, coagulation reviewed, chemistry reviewed, and urinalysis reviewed. MENTAL STATUS EXAMINATION: The patient presented to be alert and oriented, pleasant, cooperative. Fair eye contact. Mood described as "worried about my father." The patient's affect was somewhat constricted, but by the end of the interview more reactive, mood congruent. Thought process seems to be coherent. Mood congruent. Thought content, the patient denied visual, auditory, or tactile hallucinations. Denied paranoid ideation. The patient denied thoughts of harming herself or others. Denied intent or plan. Insight and judgment seemed to be fair. Impulses are well controlled. IMPRESSION AND PLAN: This scenario writer will not initiate any psychotropic medication, maybe the patient has adjustment to the fact that her father has medical issues, adjustment disorder needs to be ruled out, but overall, the patient presented very well. The patient poses no imminent danger to self or others. The patient is not interested to see psychiatrist in the community. The patient denied any psychotic symptoms, denied depression, and denied suicidal and homicidal ideation. This scenario writer will sign off. Thank you very much for letting me participate in care of your patient. Emma Chase MD MTDMeaghan
--- NOTE | 2018-05-20 08:20 | DS ---
HOSPITAL COURSE: I saw her resting comfortably in bed this morning, anxious. Neurology, Cardiology, and Psychiatry have not seen her yet. She is on IV fluids and medicines fell off her list, I will put her back on her medications. She is eating. She slept fairly well. PHYSICAL EXAMINATION VITAL SIGNS: A 98.2 temperature, 72 pulse, 90/64 blood pressure, 18 respiratory rate, and 96% O2 saturation on room air. HEENT: Head is atraumatic and normocephalic. HEART: Regular rate. LUNGS: Decreased breath sounds. ABDOMEN: Soft. EXTREMITIES: No edema. LABORATORY DATA: White count 6.2, hemoglobin 12.1, hematocrit 37.2, and platelets are 212. Sodium 140, potassium 3.9, BUN 10, creatinine 0.7, GFR is greater than 60, sugar is 103, calcium is 9.1, total bili is 0.2, AST is 22, ALT is 18, and alk phos is 78. Her all three troponins were less than 0.01 and total protein 7.4. PLAN: Await consults. Will discharge her home later today. Britton Murrell DO
== END 2018-05-19 18:57 | disposition home or self-care (01) ==
LOC: ED 11:04 → ERH 14:30 → 2RSO 17:15
PROVIDERS: ADMIT Family Medicine; ATTEND Family Medicine
DX: R07.89 Other chest pain (principal); G43.909 Migraine, unspecified, not intractable, without status migrainosus; G93.2 Benign intracranial hypertension; E11.9 Type 2 diabetes mellitus without complications; I10 Essential (primary) hypertension; E03.9 Hypothyroidism, unspecified; F32.9 Major depressive disorder, single episode, unspecified; F41.9 Anxiety disorder, unspecified; Z79.84 Long term (current) use of oral hypoglycemic drugs
CPT/HCPCS: 36415; 70450; 71046; 74176; 80053; 81003; 81025; 82550; 83615; 84484; 84703; 85025; 85027; 85610; 85730; 93005; 93923; 93970; 96360; 96374; 97162; 99285; G0378; G8978; G8979; J2405; J7030